=== PATIENT | female | born 1980 | race American Indian/Alaskan Native ===

== ENCOUNTER 2021-06-19 04:48 | Emergency (ER) | payer SELFPAY ==
[2021-06-19 04:57] VITALS: BP 162/97
[2021-06-19 05:38] LABS: Basophils # (Auto) 0.1 K/mm3 (0.0-0.1); Basophils % (Auto) 1.2 % (0.0-1.8); Eosinophils # (Auto) 0.1 K/mm3 (0.0-0.4); Eosinophils % (Auto) 1.2 % (0.0-4.3); Hematocrit 37.2 % (30.3-42.9); Hemoglobin 12.1 gm/dl (10.1-14.3); Lymphocytes % (Auto) 25.2 % (13.4-35.0); Mean Corpuscular HGB Conc 33 % (30-34); Mean Corpuscular Volume 98 fl (79-97); Monocytes # (Auto) 1.2 K/mm3 (0.0-0.8); Monocytes % (Auto) 9.8 % (0.0-7.3); Platelet Count 331 K/mm3 (140-440); Red Blood Count 3.79 M/mm3 (3.65-5.03); Red Cell Distribution Width 14.5 % (13.2-15.2)
[2021-06-19 06:01] LABS: Calcium Oxalate Crystals,Urine 2+; Mucus,Urine FEW /HPF
[2021-06-19 06:01] LABS: Alanine Aminotransferase 13 units/L (7-56); Albumin 3.5 g/dL (3.9-5); Blood Urea Nitrogen 16 mg/dL (7-17); Calcium 8.6 mg/dL (8.4-10.2); Hemolysis Index 45
[2021-06-19 06:02] LABS: RBC,Urine > 182.0 /HPF (0.0-6.0)
[2021-06-19 06:02] LABS: BUN/Creatinine Ratio 27
[2021-06-19 06:13] LABS: Blood,Urine Large (Negative); Color,Urine Straw (Yellow)
[2021-06-19 06:15] LABS: Bilirubin,Urine Negative (Negative); Protein,Urine <30 mg dL mg/dL (Negative); Urobilinogen,Urine < 2.0 mg/dL (<2.0)
[2021-06-19] MEDS ORDERED: KETOROLAC 30 MG/1 ML INJ IM ONE (06:56)
== END 2021-06-19 08:51 | disposition left against medical advice (07) ==
LOC: ED 04:48
DX: R10.31 Right lower quadrant pain (principal); Z53.21 Procedure and treatment not carried out due to patient leaving prior to being seen by health care provider
CPT/HCPCS: 36415; 80053; 81001; 84703; 85025; 96372; J1885